=== PATIENT | female | born 1995 | race Caucasian/White ===

== ENCOUNTER 2021-05-10 00:07 | Inpatient (IN) | payer OTHER ==
[~2021-05-10] VITALS: Ht 167.6 cm; Wt 99.3 kg
[2021-05-10 01:02] LABS: BILIRUBIN NEGATIVE (NEGATIVE); BLOOD TRACE-INTACT Ery/uL (NEGATIVE); CLARITY CLEAR (CLEAR); COLOR YELLOW (YELLOW); GLUCOSE (U) NORMAL (NORMAL); LEUKOCYTES NEGATIVE Leu/uL (NEGATIVE); NITRITE NEGATIVE (NEGATIVE); PROTEIN NEGATIVE (NEGATIVE); SPECIFIC GRAVITY >=1.030 (1.001-1.030); UROBILINOGEN 0.2 mg/dL (0.2-1.0)
[2021-05-10 01:08] LABS: BACTERIA TRACE; URINARY WBC RARE
[2021-05-10 01:37] LABS: HCT 34.6 % (37.0-47.0); HGB 11.3 g/dl (12.5-16.0); MCH 26.8 pg (25.0-31.0); MCHC 32.7 g/dL (32.0-36.0); MCV 82.2 fL (78.0-100.0); MPV 11.8 fL (6.0-9.5); RBC 4.21 M/uL (4.20-5.40); RDW 14.7 % (11.5-14.0); WBC 10.1 K/uL (4.0-10.5)
[2021-05-11 06:39] LABS: HCT 29.7 % (37.0-47.0); HGB 9.5 g/dl (12.5-16.0); MCH 26.5 pg (25.0-31.0); MCV 82.7 fL (78.0-100.0); RBC 3.59 M/uL (4.20-5.40); RDW 14.6 % (11.5-14.0); WBC 10.8 K/uL (4.0-10.5)
[2021-05-11] MEDS ORDERED: IBUPROFEN800 M1 PO (09:39)
[2021-05-11] MEDS ORDERED: PRENATAL FORMU1 EACH PO (09:39)
[2021-05-11] MEDS ORDERED: COLACE100 MG PO (09:39)
[2021-05-11] MEDS ORDERED: FEOSOL325 MG PO (09:39)
== END 2021-05-12 12:13 | disposition home or self-care (01) | DRG 806 ==
LOC: FOD 00:07 → FOB 00:08 → FOD 01:03 → FOB 01:04
PROVIDERS: ADMIT Obstetrics & Gynecology
PROC: 10E0XZZ Delivery of Products of Conception, External Approach (ICD-10-PCS; principal; 2021-05-10)
PROC: 0HQ9XZZ Repair Perineum Skin, External Approach (ICD-10-PCS; 2021-05-10)
DX: O36.63X0 Maternal care for excessive fetal growth, third trimester, not applicable or unspecified (principal); D62 Acute posthemorrhagic anemia; Z37.0 Single live birth; Z3A.38 38 weeks gestation of pregnancy; Z20.822 Contact with and (suspected) exposure to COVID-19; O99.214 Obesity complicating childbirth; O99.824 Streptococcus B carrier state complicating childbirth; O70.0 First degree perineal laceration during delivery; O90.81 Anemia of the puerperium
CPT/HCPCS: 36415; 81001; 84112; 86850; 86900; 86901; J0595; J2540; J2795; J2916; J7120; U0002